=== PATIENT | male | born 1995 | race Caucasian/White ===

== ENCOUNTER 2018-01-20 11:13 | Emergency (ER) | payer MEDICAID ==
[~2018-01-20] VITALS: Ht 170.2 cm; Wt 84.0 kg
[~2018-01-20 11:13] MED LIST: PROCHC RC
[2018-01-20 11:19] VITALS: BP 151/93
[2018-01-20] MEDS ORDERED: SULF1TAB49 PO (11:38)
[2018-01-20] MEDS ORDERED: CEPH-572 PO (11:38)
== END 2018-01-20 11:46 | disposition home or self-care (01) ==
LOC: ER 11:13
DX: S90.562A Insect bite (nonvenomous), left ankle, initial encounter (principal); L03.116 Cellulitis of left lower limb; F12.90 Cannabis use, unspecified, uncomplicated; Z79.899 Other long term (current) drug therapy; W57.XXXA Bitten or stung by nonvenomous insect and other nonvenomous arthropods, initial encounter; Y93.89 Activity, other specified; Y92.89 Other specified places as the place of occurrence of the external cause; Y99.8 Other external cause status
CPT/HCPCS: 99283

== ENCOUNTER 2018-01-26 20:31 | Emergency (ER) | payer MEDICAID ==
[~2018-01-26 20:31] MED LIST changes: +CEPH-572 PO; +SULF1TAB49 PO
== END 2018-01-26 22:40 | disposition left against medical advice (07) ==
LOC: ER 20:31
DX: S80.819A Abrasion, unspecified lower leg, initial encounter (principal); Z53.21 Procedure and treatment not carried out due to patient leaving prior to being seen by health care provider; X58.XXXA Exposure to other specified factors, initial encounter; Y93.89 Activity, other specified; Y92.89 Other specified places as the place of occurrence of the external cause; Y99.8 Other external cause status

== ENCOUNTER 2018-03-28 15:42 | Emergency (ER) | payer MEDICAID ==
[~2018-03-28] VITALS: Ht 170.2 cm; Wt 85.8 kg
[~2018-03-28 15:42] MED LIST changes: -CEPH-572 PO; -SULF1TAB49 PO
[2018-03-28 15:46] VITALS: BP 157/95
[2018-03-28] MEDS ORDERED: TRAM50TA2 PO (16:25)
== END 2018-03-28 16:39 | disposition home or self-care (01) ==
LOC: ER 15:42
DX: M25.512 Pain in left shoulder (principal); F12.90 Cannabis use, unspecified, uncomplicated; W01.0XXA Fall on same level from slipping, tripping and stumbling without subsequent striking against object, initial encounter; Y93.01 Activity, walking, marching and hiking; Y92.098 Other place in other non-institutional residence as the place of occurrence of the external cause; Y99.8 Other external cause status
CPT/HCPCS: 73030; 99284

== ENCOUNTER 2019-05-25 13:02 | Emergency (ER) | payer MEDICAID ==
[~2019-05-25] VITALS: Ht 172.7 cm; Wt 88.8 kg
[~2019-05-25 13:02] MED LIST changes: +lidocaine 1%/epinephrine 1:100,000 injection 50ml vial ONE
[2019-05-25 13:16] VITALS: BP 140/82
--- NOTE | 2019-05-25 13:35 | NUR ---
pt stated that he was here last year with cut juan might he had recevied dtap injection but not sure .
[2019-05-25] MEDS ORDERED: TETanus/Pertussis (Acell)/Diphther VAC/PF (Tdap-Adult) 0.5ml syringe IMVAC ONE (14:15)
== END 2019-05-25 14:58 | disposition home or self-care (01) ==
LOC: ER 13:03
DX: S61.211A Laceration without foreign body of left index finger without damage to nail, initial encounter (principal); F10.99 Alcohol use, unspecified with unspecified alcohol-induced disorder; F12.90 Cannabis use, unspecified, uncomplicated; Z79.899 Other long term (current) drug therapy; W26.0XXA Contact with knife, initial encounter; Y93.89 Activity, other specified; Y92.89 Other specified places as the place of occurrence of the external cause; Y99.8 Other external cause status; Y90.9 Presence of alcohol in blood, level not specified
CPT/HCPCS: 12002; 90471; 99283

== ENCOUNTER 2020-02-17 17:09 | Emergency (ER) | payer MEDICAID ==
[~2020-02-17] VITALS: Ht 172.7 cm; Wt 84.1 kg
[~2020-02-17 17:09] MED LIST changes: -lidocaine 1%/epinephrine 1:100,000 injection 50ml vial ONE
[2020-02-17 17:16] VITALS: BP 148/97
[2020-02-17] MEDS ORDERED: ondansetron 4mg rapidly disintigrating tab PO ONE (17:40)
[2020-02-17] MEDS ORDERED: IBUP-1984 PO (17:40)
[2020-02-17] MEDS ORDERED: HYDROcodone/acetaminophen 5mg/325mg tablet PO ONE (17:40)
[2020-02-17] MEDS ORDERED: CLIN300C70 PO (17:40)
== END 2020-02-17 17:57 | disposition home or self-care (01) ==
LOC: ER 17:09
DX: K08.89 Other specified disorders of teeth and supporting structures (principal); F12.90 Cannabis use, unspecified, uncomplicated; Z72.89 Other problems related to lifestyle; Z79.2 Long term (current) use of antibiotics; Z79.899 Other long term (current) drug therapy
CPT/HCPCS: 99283

== ENCOUNTER 2020-04-10 12:02 | Emergency (ER) | payer MEDICAID | END 2020-04-10 12:43 | disposition left against medical advice (07) | LOC: ER 12:06 | DX: Z53.21 Procedure and treatment not carried out due to patient leaving prior to being seen by health care provider (principal) ==